=== PATIENT | female | born 1930 | race African-American/Black ===

== ENCOUNTER 2018-08-29 10:39 | Outpatient (CLI) | payer OTHER | END 2018-08-29 10:40 | disposition home or self-care (01) | LOC: C.RADH 10:39 | DX: M54.2 Cervicalgia (principal) ==

== ENCOUNTER 2018-09-09 09:18 | Outpatient (CLI) | payer OTHER | END 2018-09-09 09:19 | disposition home or self-care (01) | LOC: C.CTH 09:18 | DX: N39.0 Urinary tract infection, site not specified (principal) ==

== ENCOUNTER 2018-10-24 10:22 | Outpatient (CLI) | payer OTHER | END 2018-10-24 10:23 | disposition home or self-care (01) | LOC: C.MRIC 10:23 | DX: N83.202 Unspecified ovarian cyst, left side (principal) ==